=== PATIENT | male | born 1950 | race Caucasian/White ===

== ENCOUNTER 2019-05-05 07:02 | Inpatient (IN) ==
--- NOTE | 2019-04-25 13:40 | Anesthesiology Consultation ---
Date of Service April 25, 2019 Assessment & Plan (1) Encounter for pre-operative examination: PCP Clearance 04/27/19 = "patient at mild to moderate risk for left total shoulder." Chart Review Chart Review: Acceptable Risk for Surgery and Patient seen in Pre Admission Testing Teaching & Discussion Instructed NPO after midnight before surgery, except medications with 15 cc of water. Medication instructions provided according to the PAT guidelines. History Surgery Operation Date: 05/05/19 09:45 Proposed Procedures p Left Total Shoulder Arthroplasty, Distal Clavicle Excision - Aditya Lopez MD Height/Weight Height: 5 ft 11 in Weight: 101.1 kg Allergies Allergy/AdvReac Type Severity Reaction Status Date / Time No Known Drug Allergies Allergy Verified 04/18/19 14:23 Medications Home Medications Medication Instructions Recorded Confirmed Last Taken allopurinol 300 mg PO QAM 04/18/19 04/18/19 Unknown amlodipine 5 mg PO QAM 04/18/19 04/18/19 Unknown cholecalciferol (vitamin D3) 125 mcg PO WK 04/18/19 04/18/19 Unknown [Vitamin D3] doxazosin 2 mg PO HS 04/18/19 04/18/19 Unknown loratadine [Claritin] 10 mg PO DAILY PRN 04/18/19 04/18/19 Unknown losartan 100 mg PO QAM 04/18/19 04/18/19 Unknown naproxen sodium [Aleve] 440 mg PO BID PRN 04/18/19 04/18/19 Unknown turmeric 400 mg PO QAM 04/18/19 04/18/19 Unknown zolpidem 5 mg PO HS PRN 04/18/19 04/18/19 Unknown Past Medical History Medical History Deep vein thrombosis ~1994 in leg s/p surgery H/O: gout Hypertension Osteoarthritis Exercise / Class Metabolic Activity II 4-5 Yardwork/Stairs/Walk up hill (Denies CP or SOB with 1 FOS) Past Family History Family History Brother Family hx of colon cancer Other No family history of adverse response to anesthesia Past Surgical History Surgical History History of carpal tunnel release bilateral History of colonoscopy History of esophagogastroduodenoscopy (EGD) History of tonsillectomy History of total knee replacement bilateral S/P genital surgery Exploratory surgery on scrotum to remove masses S/P left inguinal hernia repair S/P right knee surgery cartilage repair Past Anesthesia History No Hx of Anesthesia Complications and No Family Hx of Anesthesia Complications History of PONV No Hx of PONV and No Hx of Motion Sickness Social History Smoking Status: Never smoker Do You Dip or Chew Tobacco: No Hx Alcohol Use: Yes Alcohol type: beer alcohol intake frequency: 3 or more drinks per day (six pack per day per ) Hx Substance Use: No substance use type: does not use Review of Systems Pt denies any recent chest pain, shortness of breath, palpitations, cough, fever or URI. Physical Exam Vital Signs BP: 125/87 P: 86bpm SPO2: 95% RA T: 97.8 F R: 16 ENMT Mouth: + dental restorations (6 caps on front uppers); no chipped teeth and no loose teeth Thyromental Distance: > or= 3.5 Finger Breadths (3.5) Mallampati Class: III Neck + short neck; neck extension not limited Respiratory normal respiratory effort Auscultation: lungs clear to auscultation bilaterally Cardiovascular Rate/Rhythm: regular rate and regular rhythm Heart Sounds: no murmur Vessels: no carotid bruit Testing Laboratory Results 04/25/19 13:52 04/25/19 13:52 PT 10.8 Seconds (9.0-12.0) 04/25/19 13:52 INR 1.1 (0.9-1.1) 04/25/19 13:52 APTT 24.5 Seconds (21.0-31.0) 04/25/19 13:52 Hemoglobin A1c 5.4 % (4.5-5.6) 04/25/19 13:52 Urine Color Dark Yellow 04/25/19 13:52 Urine Appearance Clear (Clear) 04/25/19 13:52 Urine pH 5.0 (4.5-7.5) 04/25/19 13:52 Ur Specific [place] 1.033 (1.000-1.030) H 04/25/19 13:52 Urine Protein Negative (Negative) 04/25/19 13:52 Urine Glucose (UA) Negative (Negative) 04/25/19 13:52 Urine Ketones Trace (Negative) H 04/25/19 13:52 Urine Nitrite Negative (Negative) 04/25/19 13:52 Ur Leukocyte Esterase Negative (Negative) 04/25/19 13:52 Blood Type A Positive 04/25/19 13:52 Antibody Screen NEGATIVE 04/25/19 13:52 Electrocardiogram Date: 04/25/19 Findings: + NSR @ (71bpm) Chest X-Ray Date: 04/25/19 IMPRESSION: 1. No acute process within the chest. 2. Possible 8 mm nodule within the right midlung zone. Follow-up PA and lateral views of the chest with oblique views and nipple markers recommended for further evaluation. 3. This report was called/faxed to the referring physician's office following dictation. *PCP reviewed CXR and sent pt for CT, noted below. Other Testing CT Thorax w/ Contrast 04/28/19 Report from [facility] on a PA and lateral chest from 04/25/2019 suggested a nodule in the right midlung. There is no findings sugges t an occult pulmonary nodule. No findings for acute abnormality in either lung. No pulmonary mass or nodule seen.
--- NOTE | 2019-04-25 13:48 | PAT Medication Instructions ---
Medication Instructions Date of Service April 25, 2019 Home Medications allopurinol 300 mg PO QAM amlodipine 5 mg PO QAM cholecalciferol (vitamin D3) 125 mcg PO WK doxazosin 2 mg PO HS loratadine [Claritin] 10 mg PO DAILY PRN losartan 100 mg PO QAM naproxen sodium [Aleve] 440 mg PO BID PRN turmeric 400 mg PO QAM zolpidem 5 mg PO HS PRN ASK your surgeon for instructions naproxen sodium [Aleve] 440 mg PO BID PRN STOP taking 2 weeks before surgery turmeric 400 mg PO QAM DO NOT take the morning of surgery cholecalciferol (vitamin D3) 125 mcg PO WK loratadine [Claritin] 10 mg PO DAILY PRN losartan 100 mg PO QAM Take morning of surgery With a small sip of water, OTHERWISE NOTHING TO EAT OR DRINK AFTER MIDNIGHT: allopurinol 300 mg PO QAM amlodipine 5 mg PO QAM Take evening before surgery doxazosin 2 mg PO HS loratadine [Claritin] 10 mg PO DAILY PRN (if needed) zolpidem 5 mg PO HS PRN (if needed) Other Notes If you have any questions please call us at [phone] or [phone] or [phone] or [phone]
--- NOTE | 2019-04-25 14:37 | XRay Report ---
XR chest Pre-admission PA/Lat HISTORY: Preop. COMPARISON: None. FINDINGS: Possible 8 mm nodule within the right midlung zone. Otherwise, lungs are clear. No pleural effusions. No pneumothorax. The heart is normal in size. IMPRESSION: 1. No acute process within the chest. 2. Possible 8 mm nodule within the right midlung zone. Follow-up PA and lateral views of the chest wi th oblique views and nipple markers recommended for further evaluation. 3. This report was called/faxed to the referring physician's office following dictation. Electronically signed by: Vijay Fox M.D. 04/25/2019 2:35 PM
[2019-04-25 15:16] LABS: Basophils # (auto) 0.01 K/uL (0-0.2); Basophils % (auto) 0.2 %; Eosinophils # (auto) 0.31 K/uL (0-0.5); Eosinophils % (auto) 4.7 %; Hemoglobin 16.3 g/dL (14.0-18.0); Immature Granulocytes # (auto) 0.01 K/uL (0.00-0.02); Immature Granulocytes % (auto) 0.2 %; Lymphocytes # (auto) 1.73 K/uL (1.2-3.4); Lymphocytes % (auto) 26.3 %; Mean Corpuscular Hemoglobin 32.3 pg (25-34); Mean Corpuscular Hgb Conc 34.7 g/dL (32-36); Mean Corpuscular Volume 93.1 fL (80-100); Monocytes % (auto) 10.7 %; Neutrophils # (auto) 3.81 K/uL (1.4-6.5); Neutrophils % (auto) 57.9 %; Platelet Count 197 K/uL (130-400); RDW Coefficient of Variation 13.4 % (11.5-14.5); RDW Standard Deviation 45.5 fL (36.4-46.3); Red Blood Count 5.05 M/uL (4.7-6.1); White Blood Count 6.57 K/uL (4.8-10.8)
[2019-04-25 15:24] LABS: Appearance Urine Clear (Clear); Blood Urine Negative (Negative); Color Urine Dark Yellow; Glucose Urine UA Negative (Negative); Ketones Urine Trace (Negative); Leukocyte Esterase Urine Negative (Negative); Nitrite Urine Negative (Negative); Protein Urine Negative (Negative); Specific Gravity Urine 1.033 (1.000-1.030); Urobilinogen Urine Negative (Negative)
[2019-04-25 15:30] LABS: INR 1.1 (0.9-1.1); Partial Thromboplastin Ratio 0.9; Partial Thromboplastin Time 24.5 Seconds (21.0-31.0); Prothrombin Time 10.8 Seconds (9.0-12.0)
[2019-04-25 15:31] LABS: Albumin Level 3.4 gm/dl (3.4-5.0); BUN Creatinine Ratio 15.7 (10-20); Bilirubin Urine Negative (Negative); Calcium 8.6 mg/dl (8.5-10.1); Creatinine Clr Calc Pharmacy 75.8 ml/min; Est GFR (Non-African American) 66.4; Ictotest Urine Negative (Negative); Potassium 3.9 mmol/L (3.5-5.1)
[2019-04-26 05:33] LABS: Estimated Average Glucose 108 mg/dl; Hemoglobin A1C 5.4 % (4.5-5.6)
--- NOTE | 2019-05-04 16:36 | History and Physical Report ---
DATE OF ADMISSION: 05/05/2019 CHIEF COMPLAINT: Chronic left shoulder pain. HISTORY OF PRESENT ILLNESS: This is a 68-year-old male patient of Dr. Lopez'kip complaining of chronic left shoulder pain, longstanding, now progressively getting worse. The patient failed conservative treatment and has been diagnosed with end-stage osteoarthritis per clinical and radiographic exams. The patient wished to proceed with a left total shoulder arthroplasty and open distal clavicle excision. PAST MEDICAL HISTORY: Hypertension, hypercholesterolemia, snoring with no diagnosis of sleep apnea, osteoarthritis, neck problems, acid reflux, hiatal hernia, dental issues. SOCIAL HISTORY: Nonsmoker, 6 beers per day drinker. FAMILY HISTORY: Noncontributory. REVIEW OF SYSTEMS: Chronic left shoulder pain. Otherwise, denies any shortness of breath, chest pain, nausea, vomiting or other joint complaints. PAST SURGICAL HISTORY: Bilateral total knee replacements, tonsillectomy, hernia, scrotal cysts and right knee scope. MEDICATIONS: 1. Amlodipine 5 mg daily. 2. Losartan 10 mg daily. 3. Ambien 10 mg 1/2 tablet as needed at night. 4. Allopurinol 300 mg 1/2 tablet as needed. 5. Doxazosin 2 mg twice daily. 6. Claritin 1 at night. 7. Turmeric daily. 8. Aleve 2 tablets as needed. ALLERGIES: No known drug allergies. PHYSICAL EXAMINATION: GENERAL: Well-developed, well-nourished 68-year-old male in no acute distress. He is alert and oriented x3 and pleasant. HEENT: Normocephalic, atraumatic. Extraocular motions are intact. Pupils are equal and reactive to light. HEART: Regular rate and rhythm, no murmurs. LUNGS: Clear. ABDOMEN: Soft, nontender, bowel sounds present. EXTREMITIES: Left shoulder reveals crepitation and pain with range of motion. His range of motion is decreased. His strength is 4/5 with pain. NEUROLOGIC: Neurovascularly, he is intact in his left upper extremity. DIAGNOSIS: Left shoulder end-stage osteoarthritis and acromioclavicular joint arthritis, hypertension, hypercholesterolemia, neck problems, acid reflux, hiatal hernia. PLAN: The patient was advised of his diagnosis. Indications, risks, benefits, postop course have all been reviewed. The patient wished to proceed with a left total shoulder arthroplasty and open distal clavicle excision. Necessary consent forms, preoperative testing and clearances will be obtained.
[~2019-05-05 07:02] MED LIST: ACETAMINOPHEN 500 MG TAB PO SCH; CEFAZOLIN 2000MG 2,000 MG/15 ML SYR IV SCH; CeleBREX 200 MG CAP PO SCH; DEXAMETHASONE SOD INJ 4 MG/ML VIAL ONE; FAMOTIDINE 20 MG TAB PO SCH; GABAPENTIN 300 MG CAP PO SCH; LR 15ML/HR IV SCH; METOCLOPRAMIDE HCL 10 MG TABLET PO SCH; ROPIVACAINE 0.5% 5 MG/ML 30 ML VIAL ONE; dexAMETHasone 4 MG TAB PO SCH
[2019-05-05] MEDS ORDERED: ePHEDrine sulfate 50 MG/ML AMP IV PRN (08:35)
[2019-05-05] MEDS ORDERED: HYDROmorphone INJ 2 MG/ML SYR/VIAL IV PRN (08:35)
[2019-05-05] MEDS ORDERED: ONDANSETRON INJ 2 MG/ML 2 ML VIAL IV PRN ×2 (08:35→15:33)
[2019-05-05] MEDS ORDERED: ATROPINE SULFATE 0.1 MG/ML 10ML SYR IV PRN (08:35)
[2019-05-05] MEDS ORDERED: PROMETHAZINE HCL 12.5 MG in SODIUM CHLORIDE 0.9% 50 ML IV PRN (08:35)
[2019-05-05] MEDS ORDERED: METOCLOPRAMIDE HCL INJ 5 MG/ML 2 ML VIAL IV PRN (08:35)
[2019-05-05] MEDS ORDERED: PROPOFOL IV EMULSION 10 MG/ML 20 ML VIAL IV ONE (09:24)
[2019-05-05] MEDS ORDERED: DEXAMETHASONE SOD INJ 4 MG/ML VIAL ONE (09:24)
[2019-05-05] MEDS ORDERED: fentaNYL citrate 100 MCG/2 ML VIAL ONE ×3 (09:24→13:45)
[2019-05-05] MEDS ORDERED: GLYCOPYRROLATE 0.2 MG/ML VIAL ONE (09:24)
[2019-05-05] MEDS ORDERED: MIDAZOLAM HCL 1 MG/ML 2ML VIAL ONE ×2 (09:24)
[2019-05-05] MEDS ORDERED: LIDOCAINE HCL 2% 2 ML VIAL/AMP(20MG/ML) INFIL ONE (09:24)
[2019-05-05] MEDS ORDERED: ONDANSETRON INJ 2 MG/ML 2 ML VIAL ONE (09:24)
[2019-05-05] MEDS ORDERED: NEOSTIGMINE METHYLSULFATE 5 MG/5 ML SYR ONE (09:24)
--- NOTE | 2019-05-05 09:54 | History & Physical Bridge Note ---
Date of Service May 05, 2019 History & Physical Bridge Note I have examined the patient, reviewed the History & Physical and in the interval since the performance of the History & Physical I have noted the following changes of clinical significance: no changes noted
[2019-05-05] MEDS ORDERED: EPINEPHrine HCL INJ 1 MG/ML 30ML ONE (10:36)
[2019-05-05] MEDS ORDERED: BACITRACIN INJ 50,000 UNIT VIAL ONE (10:36)
--- NOTE | 2019-05-05 13:39 | Post Operative Brief Note ---
Immediate Post Op Note v1 Date of Surgery May 05, 2019 Pre & Post Diagnosis Operation Date: 05/05/19 10:05 Pre-Op Diagnosis: Left shoulder end-stage glenohumeral osteoarthritis and acromioclavicular joint arthritis Post-Op Diagnosis: Left shoulder end-stage glenohumeral osteoarthritis and acromioclavicular joint arthritis and biceps tendinopathy biceps tenosynovitis I identified the patient and participated in the time-out.: Yes Procedure Operation Date: 05/05/19 10:05 Actual Procedures p Left Total Shoulder Arthroplasty, Distal Clavicle Excision, biceps tenodesis (Right) - Aditya Lopez MD Surgeon Aditya Lopez MD Mechanical Fitter HE Moe Estimated Blood Loss 80 Findings Consistent with Post-Op Diagnosis Specimens Humeral head and distal clavicle Drains Hemovac Drain Anesthesia Type General Regional Complications none Disposition Accompanied Patient To Recovery: No Disposition: Recovery Room Overlapping Procedure I was immediately available: during the entire case.
[2019-05-05] MEDS: fentaNYL citrate 100 MCG/2 ML VIAL IV PRN ×2 (13:47→13:58)
--- NOTE | 2019-05-05 14:13 | XRay Report ---
LEFT SHOULDER 2 VIEWS CLINICAL HISTORY: Postoperative examination. FINDINGS: 2 portable views of the left shoulder are obtained. No prior studies are available for donna balderrama at the time of dictation. The skeletal structures are osteopenic. A left shoulder arthroplasty is in near anatomic alignment. No acute fracture is seen. Mild productive change is noted at the acr omioclavicular joint. Expected postoperative changes overly the left shoulder including skin clips, a surgical drain, subcutaneous gas, and soft tissue swelling. The visualized left lung parenchyma is c lear. IMPRESSION: Expected postoperative findings status post left shoulder arthroplasty. No acute fracture is identified. Electronically signed by: Peng Hoffman M.D. 05/05/2019 2:12 PM
[2019-05-05] MEDS ORDERED: HYDROmorphone INJ 0.5 MG/0.5 ML SYR IV PRN (15:33)
[2019-05-05] MEDS ORDERED: MAGNESIUM HYDROXIDE SUSP 30 ML UDC PO PRN (15:33)
[2019-05-05] MEDS ORDERED: LORATADINE 10 MG TAB PO PRN (15:33)
[2019-05-05] MEDS ORDERED: bisacodyL 10 MG SUPP PR PRN (15:33)
[2019-05-05] MEDS ORDERED: NALOXONE HCL 0.4 MG/1 ML VIAL/CARP IV PRN (15:33)
[2019-05-05] MEDS ORDERED: AMLODIPINE BESYLATE 5 MG TAB PO ONE (16:13)
--- NOTE | 2019-05-05 16:33 | Anesthesiology Progress Note ---
Date of Service May 05, 2019 Anesthesia Post Procedure Vital Signs Vital Signs: Temp Pulse Pulse Pulse Resp BP Pulse Ox 05/05/19 15:34 36.7 C 102 H 17 136/62 94 05/05/19 15:30 36.6 C 105 H 17 139/89 95 05/05/19 14:45 100 H 17 148/95 H 94 05/05/19 14:30 100 H 15 150/91 H 93 05/05/19 14:20 36.9 C 100 H 15 142/85 H 94 05/05/19 14:10 102 H 19 148/87 H 93 05/05/19 14:00 102 H 20 143/87 H 94 05/05/19 13:50 107 H 16 143/87 H 93 05/05/19 13:41 36.9 C 113 H 11 L 144/90 H 92 05/05/19 08:21 36.6 C 72 18 139/90 96 Pain Intensity Left Shoulder: Pain Intensity: 2 Transfer of Care Handoff Completed per policy Notes Mental Status: alert / awake / arousable and participated in evaluation Patient Amnestic to Procedure: Yes Nausea / Vomiting: adequately controlled Pain: adequately controlled Airway Patency, RR, SpO2: stable & adequate BP & HR: stable & adequate Hydration State: stable & adequate Anesthetic Complications: no major complications apparent
[2019-05-05] MEDS: ACETAMINOPHEN 500 MG TAB PO SCH ×2 (16:42→22:52)
[2019-05-05] MEDS: SODIUM CHLORIDE 0.9% 1000ML 1,000 ML IV SCH (16:43)
--- NOTE | 2019-05-05 16:49 | Operative Report ---
Post Operative Report Pre & Post Diagnosis Operation Date: 05/05/19 10:05 Pre-Op Diagnosis: Left shoulder glenohumeral and acromioclavicular joint osteoarthritis Post-Op Diagnosis: Left shoulder glenohumeral and acromioclavicular joint osteoarthritis and biceps tenosynovitis and tendinopathy with bicipital groove bone spurs I identified the patient and participated in the time-out.: Yes Procedure Operation Date: 05/05/19 10:05 Actual Procedures p Left Total Shoulder Arthroplasty, Distal Clavicle Excision, Biceps Tenodesis(Right) - Aditya Lopez MD Surgeon Aditya Lopez MD International Flight Attendant HE Moe Estimated Blood Loss 80 Findings Consistent with Post-Op Diagnosis Specimens Humeral head, distal clavicle Drains 2 Hemovac Anesthesia Type General Regional Complications none Disposition Accompanied Patient To Recovery: No Disposition: Recovery Room Indications 68-year-old male with chronic bilateral severe osteoarthritis of the glenohumeral joint. He has had multiple injections conservative management. Radiographs demonstrate gradual joint destruction bone loss with relatively concentric wear on the glenoid. Patient also has hypertrophic AC joint arthritis which is symptomatic. Description of Procedure The patient was taken to the operating room and anesthetized under a general and regional block anesthesia. A towel roll was placed under the medial border of the scapula of the left shoulder. The patient's head was placed on a foam headrest and protective eyewear was placed and the extremities were well padded. The arm was draped free in order to manipulate the shoulder as necessary. The shoulder exam demonstrated only 35 degrees external rotation 80 degrees abduction and forward elevation to 140 degrees. There is [id number] crepitation.. The shoulder was sterilely prepped and draped in the usual sterile fashion. An anterior deltopectoral approach was performed. A longitudinal incision was made in the interval. The skin was incised sharply and subcutaneous tissues dissected down to the fascia. The cephalic vein was not well developed there were some large collaterals that were more medial and retracted medially with the pectoralis muscle. The clavipectoral fascia was divided at the lateral margin of the conjoined tendon and divided up to the level of the coracoacromial ligament which was preserved. The upper 1 cm of the pectoralis was released for inferior exposure. Patient had a large thick falciform ligament over the biceps. The biceps tendon findings demonstrated marked tenosynovitis with a hypertrophic tenosynovium collection over the biceps tendon. The biceps in the bicipital groove was noted to have large spurs surrounding it and tendinopathy. The rotator cuff tendon findings demonstrated intact rotator cuff. The circumflex vessels were identified and tied off with silk ties and divided laterally. The fibers and subscapularis were split longitudinally at the level of the circumflex vessels down to the capsule and then reflected off the inferior capsule using a Kitner elevator. The axillary nerve was identified with a tug test and protected with a blunt Clint retractor. The rotator interval was opened up and extended down to the glenoid. The biceps tendon was identified and tenodesed to the pectoralis tendon with fig [id number] #2 FiberWire sutures in the proximal biceps was resected. The bone spurs in the bicipital groove were all resected with a rongeur. The subscapularis tendon was taken down with a trans-tendinous incision leaving a cuff of tissue for repair on the lesser tuberosity. The incision was carried down to the tendon and the capsule and a #1 Vicryl suture was placed into the free end of the subscapularis tendon. The capsule was subperiosteally dissected off the inferior neck of the humerus exposing the humeral osteophytes which demonstrated moderately large inferior osteophytes extending from anterior to posterior.. The osteophytes were excised with an artist chisel and a rongeur. The capsular release along the inferior neck of the humerus was completed. The humerus was then retracted posterior to the glenoid with a Fukuda retractor. The remainder of the biceps tendon and labrum was resected. The glenoid findings demonstrated completely eburnated bone with some moderate bone loss. There was some relative anterior ridge of the glenoid that was still intact making that somewhat proud with more concentric type wear with some bone loss medial.. I did an anterior inferior and posterior inferior release with electrocautery on bone and a [place] elevator with the axillary nerve continuing to be protected with the blunt Hohmann retractor inferiorly. When the releases were completed and the humeral head was exposed with some extension and external rotation and in anatomic head cut was made using the oscillating saw. The humeral head findings demonstrated eburnated bone some flattening of the humeral head. The simplicity Tornier total shoulder arthroplasty system was used. The head was sized for a 50 mm implant. The central guidepin was placed using the appropriate guide. The cut surface was reamed. The central drill hole for the trial nucleus was reamed. The trial nucleus punch was seated leaving it a few millimeters proud and then the cut protector was placed. The humeral head was then retracted posterior to the glenoid with Hohmann retractors and Bankart retractor placed anteriorly. A central drill hole was made into the glenoid. The glenoid was sized for a size medium 30 radius Cortiloc pegged component. The StyleChat by [employer] Acsendo total shoulder arthroplasty system was used and the Cortiloc medium 30 radius pegged glenoid component was chosen. The glenoid was reamed and the central drill widened and the guide for the peg holes was placed in the peg holes were drilled and a trial component was placed with a tight fit. The trial was removed and the glenoid was irrigated with pulsatile lavage antibiotic solution and the drill holes were dried and packed with epinephrine- soaked tampons for hemostasis. The [place] G cement was vacuum mixed. The final component was cemented into position. All excess cement was cleared. Pressure was maintained on the implant until the cement cured. After irrigation the glenoid retractors were removed and the cut humeral surface was reexposed the cut protector was removed and a trial 50 x 16 humeral head component was placed. A trial reduction was performed and the shoulder was stable. The trial was removed and the humerus surface was irrigated copiously with antibiotic solution with bacitracin. 3 drill holes were made into the hard bone in the bicipital groove lateral to the lesser tuberosity and 3 #5 FiberWire transosseous sutures were placed for repair of the subscapularis. After further irrigation I placed some bone graft that was taken from the humeral head into the base of the drill hole to enhance some fixation of the press-fit nucleus. The sized to simplicity nucleus was then impacted leaving it a few millimeters proud. The the size 50 x 16 mm humeral head was then impacted onto the nucleus and both implants simultaneously impacted into the humerus with a tight press- fit. The humerus was reduced to the glenoid and stability verified. The subscapularis was repaired with the #5 FiberWire sutures in a Terry-Jony suture technique and lateral row fixation with [id number] #2 FiberWire in the soft tissue. The rotator interval was closed and maximal external rotation. The pectoralis was then closed with [id number] #2 FiberWire suture. The shoulder was taken through range of motion there was no tension on repair through 150 degrees forward elevation 90 degrees abduction and 45 degrees external rotation. Attention was then taken to the distal clavicle excision. A transverse incision was made over the distal clavicle. The skin incised sharply subcutaneous tissues were dissected off of the fascia overlying the distal clavicle. Incision was carried down to the distal clavicle and to the edge of the acromion across the AC joint. Subperiosteal dissection exposed 1 cm distal clavicle. The AC joint demonstrates significant hypertrophic arthritis. 1 cm distal clavicle was resected with the oscillating saw. The wound was irrigated. The deltotrapezial fascia was closed with [id number] #2 FiberWire suture. Secure repair was obtained. The subcu tissues were closed into 2-0 Vicryl suture and skin was closed with juliet. 2 Hemovac drains were placed in the deltopectoral incision one deep to the deltoid and one deep to the conjoined tendon.. The deltopectoral interval was closed with [id number] #1 Vicryl sutures. The subcutaneous tissues were closed with interrupted 2-0 Vicryl and the skin was closed with juliet and a sterile dressing was applied. The patient tolerated the procedure well. HE Moe my physician title i instructional assistant, assisted in soft tissue retraction instrument management suture management and assisted in the subcutaneous and skin closure and will participate in the postoperative care the patient. I attest to the content of the Intraoperative Record and any orders documented therein. Any exceptions are noted below.
--- NOTE | 2019-05-05 17:17 | Hospitalist Consultation ---
Date of Consultation May 05, 2019 Assessment & Plan (1) Hypertension: Blood pressure is stable. Continue monitoring every 4 hours. Continue amlodipine 5 mg p.o. every morning, continue losartan 100 mg p.o. every morning. Continue doxazosin 2 mg p.o. nightly. Heart healthy low-sodium diet. Patient advised to try to reduce weight and exercise status post arthroplasty of the left shoulder. Present on Admission?: Yes (2) Gout: Stable. Continue allopurinol 300 mg p.o. every morning. Present on Admission?: Yes (3) Osteoarthritis: Continue turmeric 400 mg p.o. every morning. Present on Admission?: Yes (4) Obesity: Patient advised to try to reduce weight for at least 10 to 15 pounds. To join [employer]. And start exercises status post arthroplasty. Physical and occupational therapy would be of great help as well. Present on Admission?: Yes (5) Status post reverse total arthroplasty of left shoulder: As per Ortho. For DVT prophylaxis SCDs and teds and otherwise per orthopedics. Present on Admission?: Yes (6) Insomnia: Continue zolpidem 5 mg p.o. nightly as needed for insomnia. Patient was advised to try as an outpatient melatonin 5 or 6 mg QHS as needed for insomnia can be purchased as OTC in any drugstore. Melatonin benefits discussed with patient. Patient should avoid long-acting sedatives/hypnotics. Present on Admission?: Yes History of Present Illness Reason for Consultation: Medical management Requesting Physician: Aditya Lopez MD Attending Physician: Aditya Lopez MD History of Present Illness Patient is a 68 years old male with past medical history of gout, hypertension, benign prostatic hypertrophy, and insomnia who is s/p today left total shoulder arthroplasty, distal cervical excision, biceps tendodesis. Tolerated procedure well and reports not being in any pain. Patient denies fever, chills, chest pain, shortness of breath, abdominal pain, frequency, urgency. Patient does not use oxygen at home. P.o. intake is good. Patient reports having regular bowel movements and no urinary retention. Please chart is reviewed. Allergies Allergy/AdvReac Type Severity Reaction Status Date / Time No Known Drug Allergies Allergy Verified 05/05/19 07:41 Home Medications Home Medications Medication Instructions Recorded Confirmed Type allopurinol 300 mg PO QAM 04/18/19 05/05/19 History amlodipine 5 mg PO QAM 04/18/19 05/05/19 History cholecalciferol (vitamin D3) 125 mcg PO WK 04/18/19 05/05/19 History [Vitamin D3] doxazosin 2 mg PO HS 04/18/19 05/05/19 History loratadine [Claritin] 10 mg PO DAILY PRN 04/18/19 05/05/19 History losartan 100 mg PO QAM 04/18/19 05/05/19 History naproxen sodium [Aleve] 440 mg PO BID PRN 04/18/19 05/05/19 History turmeric 400 mg PO QAM 04/18/19 05/05/19 History zolpidem 5 mg PO HS PRN 04/18/19 05/05/19 History Patient History Medical History Deep vein thrombosis ~1994 in leg s/p surgery H/O: gout Hypertension Osteoarthritis Surgical History History of carpal tunnel release bilateral History of colonoscopy History of esophagogastroduodenoscopy (EGD) History of tonsillectomy History of total knee replacement bilateral S/P genital surgery Exploratory surgery on scrotum to remove masses S/P left inguinal hernia repair S/P right knee surgery cartilage repair Family History Brother Family hx of colon cancer Other No family history of adverse response to anesthesia Social History Preferred Language: Georgian Communication Ability: Effective Mental Health Director Required: No Beliefs That Will Affect Care: None Current Living Situation: Spouse Other Information That Helps Us Care for You: No Feels Safe at Home: Yes Safety Concerns: Feels Safe At This Time Smoking Status: Never smoker Do You Dip or Chew Tobacco: No ; Second Hand Exposure: No ; Tobacco Cessation Education Requested by Patient: No Hx Alcohol Use: Yes Alcohol type: beer Hx Substance Use: No Review of Systems Review of Systems: All systems reviewed & are unremarkable except as noted in HPI & below Physical Exam Constitutional: WD/WN, vitals as above well developed and + obese ENMT: Mouth: + dental restorations (6 caps on front uppers); no chipped teeth and no loose teeth Mallampati Class: III Neck: + short neck; neck extension not limited Respiratory: normal respiratory effort Auscultation: lungs clear to auscultation bilaterally Cardiovascular: Rate/Rhythm: regular rate and regular rhythm Heart Sounds: no murmur Vessels: no carotid bruit Gastrointestinal (Abdomen): normal bowel sounds, soft, nontender, no hepatosplenomegaly Musculoskeletal: no cyanosis or clubbing, extremities motor strength 5/5 Left shoulder is in sling s/p arthroplasty Skin: no rashes, warm and dry Neurologic: patellar DTR's 2+ bilat, sensation intact Psychiatric: A+Ox3, euthymic affect Results & Data Vital Signs (Past 12 Hours) Vital Signs Temp Pulse Pulse Pulse Resp BP Pulse Ox 05/05/19 16:48 36.7 C 109 H 17 142/85 H 95 05/05/19 15:34 36.7 C 102 H 17 136/62 94 05/05/19 15:30 36.6 C 105 H 17 139/89 95 05/05/19 14:45 100 H 17 148/95 H 94 05/05/19 14:30 100 H 15 150/91 H 93 05/05/19 14:20 36.9 C 100 H 15 142/85 H 94 05/05/19 14:10 102 H 19 148/87 H 93 05/05/19 14:00 102 H 20 143/87 H 94 05/05/19 13:50 107 H 16 143/87 H 93 05/05/19 13:41 36.9 C 113 H 11 L 144/90 H 92 05/05/19 08:21 36.6 C 72 18 139/90 96 PG Care Time/CCT Total # of Minutes Spent Total Time Spent with Patient: Total time spent is greater than 50% in coordination of care (as documented) at patient's floor/unit and/or counseling patient:
[2019-05-05] MEDS: CEFAZOLIN 2000MG 2,000 MG/15 ML SYR IV SCH (17:30)
[2019-05-05] MEDS ORDERED: INFLUENZA Vaccine HIGH DOSE 65+yrs 0.5 mL Syr IM ONE (20:00)
[2019-05-05] MEDS: SENNA 8.6 MG TAB PO SCH (20:02)
[2019-05-05] MEDS: ASPIRIN 81 MG ECTAB PO SCH (20:02)
[2019-05-05] MEDS: DOCUSATE SODIUM 100 MG CAP PO SCH (20:03)
[2019-05-05] MEDS: DOXAZosin MESYLATE TAB 2 MG TAB PO SCH (20:03)
[2019-05-05] MEDS: ZOLPIDEM TARTRATE 5 MG TAB PO PRN (21:39)
[2019-05-06] MEDS: CEFAZOLIN 2000MG 2,000 MG/15 ML SYR IV SCH (02:03)
[2019-05-06] MEDS: SODIUM CHLORIDE 0.9% 1000ML 1,000 ML IV SCH (02:11)
[2019-05-06 06:52] LABS: Hemoglobin 14.4 g/dL (14.0-18.0); Immature Granulocytes # (auto) 0.04 K/uL (0.00-0.02); Immature Granulocytes % (auto) 0.2 %; Lymphocytes # (auto) 1.05 K/uL (1.2-3.4); Lymphocytes % (auto) 6.4 %; Mean Corpuscular Hemoglobin 31.6 pg (25-34); Mean Corpuscular Hgb Conc 34.3 g/dL (32-36); Mean Corpuscular Volume 92.3 fL (80-100); Mean Platelet Volume 10.4 fL (7.4-10.4); Monocytes # (auto) 1.03 K/uL (0.11-0.59); Monocytes % (auto) 6.3 %; Neutrophils # (auto) 14.26 K/uL (1.4-6.5); Neutrophils % (auto) 87.1 %; Platelet Count 162 K/uL (130-400); RDW Coefficient of Variation 13.3 % (11.5-14.5); Red Blood Count 4.55 M/uL (4.7-6.1); White Blood Count 16.38 K/uL (4.8-10.8)
[2019-05-06 07:00] LABS: Estimated Average Glucose 111 mg/dl; Hemoglobin A1C 5.5 % (4.5-5.6)
[2019-05-06 07:32] LABS: BUN Creatinine Ratio 17.9 (10-20); Calcium 8.3 mg/dl (8.5-10.1); Creatinine Clr Calc Pharmacy 78.6 ml/min; Est GFR (African American) 80.4; Est GFR (Non-African American) 69.4; Potassium 4.4 mmol/L (3.5-5.1)
[2019-05-06] MEDS: OXYCODONE HCL IR 5 MG TAB (IMMEDIATE RELEASE) PO PRN ×3 (08:27→18:48)
[2019-05-06] MEDS: ACETAMINOPHEN 500 MG TAB PO SCH ×3 (08:51→22:38)
[2019-05-06] MEDS: ASPIRIN 81 MG ECTAB PO SCH ×2 (08:53→20:14)
[2019-05-06] MEDS: LOSARTAN POTASSIUM 50 MG TAB PO SCH (08:54)
[2019-05-06] MEDS: DOCUSATE SODIUM 100 MG CAP PO SCH ×2 (08:54→20:13)
[2019-05-06] MEDS: MULTIVITAMIN TAB PO SCH (08:54)
[2019-05-06] MEDS: AMLODIPINE BESYLATE 5 MG TAB PO SCH (08:54)
[2019-05-06] MEDS: allopurinoL 300 MG TAB PO SCH (08:55)
[2019-05-06] MEDS ORDERED: NON-FORMULARY MEDICATION (Turmeric 400 MG) PO SCH (09:00)
--- NOTE | 2019-05-06 14:09 | Hospitalist Progress Note ---
Date of Service May 06, 2019 Assessment & Plan (1) Status post reverse total arthroplasty of left shoulder: * POD #1 s/p LEFT shoulder arthroplasty with Dr. Lopez. EBL 80mL. Pre-op h/h 16.3/14.4. Output 190cc -- management per primary * H/h 14.4/42 today -- secondary to blood loss/IVF. WBC 16.38 today, however patient did receive 8mg dexamethasone -- afebrile, no s/sx infection * PT/OT/DVT Prophylaxis/pain management/per primary team * Monitor CBC (2) Hypertension: * STABLE - currently 128/60 * Continue amlodipine 5mg, losartan 100mg * Continue doxazosin 2 mg QHS (3) Gout: * Stable. Continue allopurinol 300 mg (4) Osteoarthritis: * Continue turmeric 400 mg (5) Obesity: * Diet/exercise (6) Insomnia: * Continue zolpidem 5 mg QHS. nightly as needed for insomnia. Discussed alternatives like melatonin to avoid prison dependence/sedatives (7) DVT prophylaxis: * H/o DVT 1995 following surgery * ASA 81mg BID per primary Dispo: from home, likely d/c tomorrow per primary team Thank you for allowing medicine team to participate in the care of Mr. Baker. Medicine will sign off. Please contact with any questions/concerns. Supervising Physician Co-Signing Physician Notes HE Supervision Note: I did not personally see or examine the patient today, but I verified all beckwith points of HE Bess's assessment and plan with the following exceptions/additions: It should be noted that the outpatient records show the patient's doxazosin dose is 2 mg p.o. twice daily-this should be clarified with the patient prior to discharge, however his blood pressures are fairly well controlled for the time being and can remain at the once daily dosing at bedtime for now. Hospitalist service will sign off at this time. Please feel free to call or reconsult us if acute or new issues arise. Subjective Patient evaluated this morning. States he does have some pain of the left shoulder, but it's worse during our interaction since he had just been working with physical therapy. States pain a 3/10, controlled with oral pain medications. Had some numbness/tingling of thumb yesterday, which is resolved today. +Flatus. No BM, but patient denies any abdominal pain at this time. Last BM on and he typically goes daily. Denies current difficulty with urination. Denies fevers, chills, headache, chest pain, shortness of breath, n/v. Plans for discharge home tomorrow Review of Systems Review of Systems: All systems reviewed & are unremarkable except as noted in HPI & below Physical Exam Constitutional: WD/WN, vitals as above ENMT: multiple caps to teeth mm moist Neck: trachea midline, no thyromegaly Respiratory: normal respiratory effort, lungs clear to auscultation Cardiovascular: RRR, no murmur, no edema Gastrointestinal (Abdomen): Inspection/Auscultation: + abdomen distended and normal bowel sounds Percussion/Palpation: abdomen nontender and no hepatosplenomegaly Musculoskeletal: HemoVac left shoulder -- 200cc bloody drainage NVI Chemical Operator strength b/l UE Skin: no rashes, warm and dry Sling to LEFT UE Hemovac to L shoulder Neurologic: patellar DTR's 2+ bilat, sensation intact Psychiatric: A+Ox3, euthymic affect Lymphatic: no cervical or axillary lymphadenopathy Results & Data Vital Signs (Past 12 Hours) Vital Signs Temp Pulse Resp BP Pulse Ox 05/06/19 11:23 36.4 C L 86 16 128/60 94 05/06/19 07:10 36.8 C 80 16 145/85 H 93 05/06/19 02:15 36.8 C 85 16 148/84 H 94 Laboratory Results 05/06/19 05/06/19 05/06/19 Range/Units 06:43 06:43 06:43 WBC 16.38 H (4.8-10.8) K/uL RBC 4.55 L (4.7-6.1) M/uL Hgb 14.4 (14.0-18.0) g/dL Hct 42.0 (42-52) % MCV 92.3 (80-100) fL MCH 31.6 (25-34) pg MCHC 34.3 (32-36) g/dL RDW Std Deviation 45.0 (36.4-46.3) fL RDW Coeff of Priscilla 13.3 (11.5-14.5) % Plt Count 162 (130-400) K/uL MPV 10.4 (7.4-10.4) fL Immature Gran % (Auto) 0.2 % Neut % (Auto) 87.1 % Lymph % (Auto) 6.4 % Cowley % (Auto) 6.3 % Eos % (Auto) 0.0 % Baso % (Auto) 0.0 % Immature Gran # (Auto) 0.04 H (0.00-0.02) K/uL Neut # (Auto) 14.26 H (1.4-6.5) K/uL Lymph # (Auto) 1.05 L (1.2-3.4) K/uL Cowley # (Auto) 1.03 H (0.11-0.59) K/uL Eos # (Auto) 0.00 (0-0.5) K/uL Baso # (Auto) 0.00 (0-0.2) K/uL Sodium 136 (136-145) mmol/L Potassium 4.4 (3.5-5.1) mmol/L Chloride 107 (98-107) mmol/L Carbon Dioxide 24 (21-32) mmol/L Anion Gap 5.0 (3-11) BUN 20 H (7-18) mg/dl Creatinine 1.09 (0.6-1.4) mg/dl Est Cr Clr Drug Dosing 78.6 ml/min Est GFR ( Amer) 80.4 Est GFR (Non-Af Amer) 69.4 BUN/Creatinine Ratio 17.9 (10-20) Glucose 134 H (70-99) mg/dl Estimat Average Glucose 111 mg/dl Hemoglobin A1c 5.5 (4.5-5.6) % Calcium 8.3 L (8.5-10.1) mg/dl Triglycerides 71 (0-150) mg/dl Cholesterol 146 (0-200) mg/dl LDL Cholesterol, Calc 66 mg/dl VLDL Cholesterol, Calc 14 mg/dl HDL Cholesterol 66 mg/dl Cholesterol/HDL Ratio 2 Hepatitis C Ab Screen (Neg) 05/06/19 Range/Units 06:43 WBC (4.8-10.8) K/uL RBC (4.7-6.1) M/uL Hgb (14.0-18.0) g/dL Hct (42-52) % MCV (80-100) fL MCH (25-34) pg MCHC (32-36) g/dL RDW Std Deviation (36.4-46.3) fL RDW Coeff of Priscilla (11.5-14.5) % Plt Count (130-400) K/uL MPV (7.4-10.4) fL Immature Gran % (Auto) % Neut % (Auto) % Lymph % (Auto) % Cowley % (Auto) % Eos % (Auto) % Baso % (Auto) % Immature Gran # (Auto) (0.00-0.02) K/uL Neut # (Auto) (1.4-6.5) K/uL Lymph # (Auto) (1.2-3.4) K/uL Cowley # (Auto) (0.11-0.59) K/uL Eos # (Auto) (0-0.5) K/uL Baso # (Auto) (0-0.2) K/uL Sodium (136-145) mmol/L Potassium (3.5-5.1) mmol/L Chloride (98-107) mmol/L Carbon Dioxide (21-32) mmol/L Anion Gap (3-11) BUN (7-18) mg/dl Creatinine (0.6-1.4) mg/dl Est Cr Clr Drug Dosing ml/min Est GFR ( Amer) Est GFR (Non-Af Amer) BUN/Creatinine Ratio (10-20) Glucose (70-99) mg/dl Estimat Average Glucose mg/dl Hemoglobin A1c (4.5-5.6) % Calcium (8.5-10.1) mg/dl Triglycerides (0-150) mg/dl Cholesterol (0-200) mg/dl LDL Cholesterol, Calc mg/dl VLDL Cholesterol, Calc mg/dl HDL Cholesterol mg/dl Cholesterol/HDL Ratio Hepatitis C Ab Screen Neg (Neg) Diagnostic Findings LEFT SHOULDER 2 VIEWS CLINICAL HISTORY: Postoperative examination. FINDINGS: 2 portable views of the left shoulder are obtained. No prior studies are available for comparison at the time of dictation. The skeletal structures are osteopenic. A left shoulder arthroplasty is in near anatomic alignment. No acute fracture is seen. Mild productive change is noted at the acromioclavicular joint. Expected postoperative changes overly the left shoulder including skin clips, a surgical drain, subcutaneous gas, and soft tissue swelling. The visualized left lung parenchyma is clear. IMPRESSION: Expected postoperative findings status post left shoulder arthroplasty. No acute fracture is identified. PG Care Time/CCT Total # of Minutes Spent Total Time Spent with Patient: Total time spent is greater than 50% in coordination of care (as documented) at patient's floor/unit and/or counseling patient:
--- NOTE | 2019-05-06 15:14 | Orthopedic Progress Note ---
Date of Service May 06, 2019 Assessment & Plan (1) Status post reverse total arthroplasty of left shoulder: POD #1 s/p Left Total Shoulder Arthroplasty, Distal Clavicle Excision, Biceps Tenodesis Dressing in place PT/OT Pain control. DVT prophylaxis--ASA 81 mg BID D/C planning--home tomorrow 05.07.19. Subjective Doing well today. Pain controlled in the left shoulder. Concerned about long car ride home and possible increase in pain. Denies CP, SOB, LH. Physical Exam Constitutional: WD/WN, vitals as above no acute distress Musculoskeletal: Shoulder: + surgical incision (left shoulder dressing C/D/I. Sling in place) and + surgical drain present (~250 cc out of the hemovac in 24 hours); no deformity, no skin erythema and no ecchymosis Neurologic: normal touch/pain/proprioception Psychiatric: A+Ox3, euthymic affect Speech: normal rate/rhythm/volume of speech Results & Data Vital Signs (Past 12 Hours) Vital Signs Temp Pulse Resp BP Pulse Ox 05/06/19 11:23 36.4 C L 86 16 128/60 94 05/06/19 07:10 36.8 C 80 16 145/85 H 93
--- NOTE | 2019-05-06 16:10 | Anesthesiology Progress Note ---
Date of Service May 06, 2019 Anesthesia Post Procedure Vital Signs Vital Signs: Temp Pulse Resp BP Pulse Ox 05/06/19 15:29 36.9 C 87 18 146/86 H 97 05/06/19 11:23 36.4 C L 86 16 128/60 94 05/06/19 07:10 36.8 C 80 16 145/85 H 93 05/06/19 02:15 36.8 C 85 16 148/84 H 94 05/05/19 23:34 36.6 C 89 16 134/80 93 05/05/19 20:04 36.5 C 108 H 17 138/85 93 05/05/19 18:09 37.0 C 109 H 17 127/82 94 05/05/19 16:48 36.7 C 109 H 17 142/85 H 95 Pain Intensity Left Shoulder: Pain Intensity: 8 Transfer of Care Handoff Completed per policy Notes Mental Status: alert / awake / arousable and participated in evaluation Patient Amnestic to Procedure: Yes Nausea / Vomiting: adequately controlled Pain: adequately controlled Airway Patency, RR, SpO2: stable & adequate BP & HR: stable & adequate Hydration State: stable & adequate Anesthetic Complications: no major complications apparent
[2019-05-06] MEDS: SENNA 8.6 MG TAB PO SCH (20:14)
[2019-05-06] MEDS: DOXAZosin MESYLATE TAB 2 MG TAB PO SCH (20:14)
[2019-05-06] MEDS: ZOLPIDEM TARTRATE 5 MG TAB PO PRN (22:38)
[2019-05-07] MEDS: OXYCODONE HCL IR 5 MG TAB (IMMEDIATE RELEASE) PO PRN ×2 (01:02→09:29)
[2019-05-07] MEDS: ACETAMINOPHEN 500 MG TAB PO SCH (05:49)
[2019-05-07 05:59] LABS: Basophils # (auto) 0.01 K/uL (0-0.2); Basophils % (auto) 0.1 %; Eosinophils # (auto) 0.11 K/uL (0-0.5); Eosinophils % (auto) 0.9 %; Hematocrit (blood only) 40.9 % (42-52); Immature Granulocytes # (auto) 0.03 K/uL (0.00-0.02); Immature Granulocytes % (auto) 0.3 %; Lymphocytes # (auto) 2.23 K/uL (1.2-3.4); Mean Corpuscular Hemoglobin 31.9 pg (25-34); Mean Corpuscular Hgb Conc 34.2 g/dL (32-36); Mean Corpuscular Volume 93.2 fL (80-100); Mean Platelet Volume 10.6 fL (7.4-10.4); Monocytes # (auto) 1.36 K/uL (0.11-0.59); Monocytes % (auto) 11.6 %; Neutrophils % (auto) 68.1 %; Platelet Count 141 K/uL (130-400); RDW Coefficient of Variation 13.5 % (11.5-14.5); RDW Standard Deviation 46.5 fL (36.4-46.3); Red Blood Count 4.39 M/uL (4.7-6.1); White Blood Count 11.74 K/uL (4.8-10.8)
[2019-05-07 06:33] LABS: BUN Creatinine Ratio 20.5 (10-20); Calcium 8.4 mg/dl (8.5-10.1); Creatinine Clr Calc Pharmacy 96.2 ml/min; Est GFR (African American) 101.8; Est GFR (Non-African American) 87.9; Potassium 4.1 mmol/L (3.5-5.1)
[2019-05-07] MEDS: MULTIVITAMIN TAB PO SCH (07:29)
[2019-05-07] MEDS: DOCUSATE SODIUM 100 MG CAP PO SCH (07:29)
[2019-05-07] MEDS: AMLODIPINE BESYLATE 5 MG TAB PO SCH (07:29)
[2019-05-07] MEDS: allopurinoL 300 MG TAB PO SCH (07:29)
[2019-05-07] MEDS: ASPIRIN 81 MG ECTAB PO SCH (07:30)
[2019-05-07] MEDS: LOSARTAN POTASSIUM 50 MG TAB PO SCH (07:30)
--- NOTE | 2019-05-07 08:39 | Orthopedic Progress Note ---
Date of Service May 07, 2019 Assessment & Plan (1) Status post reverse total arthroplasty of left shoulder: POD #2 s/p Left Total Shoulder Arthroplasty, Distal Clavicle Excision, Biceps Tenodesis Dressing change this AM. PT/OT Pain control. DVT prophylaxis--ASA 81 mg BID. He's been taking it here without any issues but he states he was instructed by his PCP 10 years ago not to take ASA. He is to call his PCP's office tomorrow to discuss. D/C planning--home today Subjective Doing well today. Pain controlled in the left shoulder. Ready to go home this AM. Denies CP, SOB, LH. Physical Exam Constitutional: WD/WN, vitals as above no acute distress Musculoskeletal: Shoulder: + surgical incision (left shoulder dressing C/D/I. Sling in place); no deformity, no skin erythema, no ecchymosis and no surgical drain present (Hemovac was removed today.) Neurologic: normal touch/pain/proprioception Psychiatric: A+Ox3, euthymic affect Speech: normal rate/rhythm/volume of speech Results & Data Vital Signs (Past 12 Hours) Vital Signs Temp Pulse Resp BP Pulse Ox 05/07/19 06:22 36.7 C 78 18 148/91 H 93 05/06/19 23:21 36.8 C 80 16 134/84 94
[2019-05-09] MEDS ORDERED: ERGOCALCIFEROL 50,000 UNITS CAP PO SCH (09:00)
--- NOTE | 2019-05-21 20:34 | Discharge Summary ---
HISTORY OF PRESENT ILLNESS: This is a 68-year-old male patient of Dr. Lopez'kip complaining of chronic left shoulder pain, longstanding, now progressively getting worse. The patient has been diagnosed with end-stage osteoarthritis. He has failed conservative treatment and wishes to proceed with a left total shoulder arthroplasty. PAST MEDICAL HISTORY: Hypertension, hypercholesterolemia, osteoarthritis, neck problems, acid reflux, hiatal hernia, and dental issues. POSTOPERATIVE COURSE: The patient underwent a left total shoulder arthroplasty, distal clavicle excision, and biceps tenodesis on 05/05/2019. He was followed closely with medical consultation, physical therapy, pain control, and DVT prophylaxis in the form of aspirin. The patient did well postoperatively and was discharged on postoperative day #2. PHYSICAL EXAMINATION: EXTREMITITES: Left shoulder incision was clean, dry and intact. Jolene were intact. Skin edges were approximated well. There was no redness or drainage. Fingers were mobile. sling was intact. Neurologically and neurovascularly he was intact in his left upper extremity. DIAGNOSES: Status post left total shoulder arthroplasty, distal clavicle excision, biceps tenodesis with a history of hypertension, hypercholesterolemia, osteoarthritis, neck problems, acid reflux, hiatal hernia, and dental issues. PLAN: The patient was discharged home with outpatient physical therapy. He will continue his preadmission medications with the addition of pain medications and he will continue aspirin twice daily for DVT prophylaxis for 1 month postop. The patient will follow up as scheduled as an outpatient. MILAN
== END 2019-05-07 11:38 | disposition home or self-care (01) | DRG 483 ==
LOC: ASU 07:02 → 3E 14:07

== ENCOUNTER 2020-03-27 09:17 | Inpatient (IN) ==
--- NOTE | 2020-02-21 15:17 | PAT Medication Instructions ---
Medication Instructions Date of Service February 21, 2020 Home Medications allopurinol 300 mg PO QAM amlodipine 5 mg PO QAM cholecalciferol (vitamin D3) [Vitamin D3] 250 mcg PO QAM doxazosin 2 mg PO BID loratadine [Claritin] 10 mg PO DAILY PRN losartan 100 mg PO QAM turmeric 400 mg PO QAM melatonin 1 - 3 mg PO HS PRN naproxen sodium [Aleve] 220 mg PO BID PRN ASK your surgeon for instructions naproxen sodium [Aleve] 220 mg PO BID PRN STOP taking 2 weeks before surgery (or as soon as possible if surgery is within 2 weeks) turmeric 400 mg PO QAM DO NOT take the morning of surgery cholecalciferol (vitamin D3) [Vitamin D3] 250 mcg PO QAM loratadine [Claritin] 10 mg PO DAILY PRN losartan 100 mg PO QAM Take morning of surgery With a small sip of water, OTHERWISE NOTHING TO EAT OR DRINK AFTER MIDNIGHT: allopurinol 300 mg PO QAM amlodipine 5 mg PO QAM Take evening before surgery doxazosin 2 mg PO BID loratadine [Claritin] 10 mg PO DAILY PRN (if needed) melatonin 1 - 3 mg PO HS PRN (if needed) Other Notes If you have any questions please call us at [phone] or [phone] or [phone] or [phone]
--- NOTE | 2020-02-26 12:59 | Anesthesiology Consultation ---
Date of Service February 26, 2020 Assessment & Plan (1) Encounter for pre-operative examination: COVID Status: As of 02/25 assessment, patient denies travel to endemic area, known exposure/sick contacts, or symptoms of COVID19. Patient instructed that they and their household members must follow strict social distancing guidelines, wear a mask in public and avoid travel for 14 days prior to surgery. Preoperative COVID19 testing to be completed prior to surgery per surgeon's ar rangements (pt reports to be done 03/22). Patient made aware to self-isolate as much as possible between COVID testing and surgery. Chart Review Chart Review: Acceptable Risk for Surgery and Patient seen in Pre Admission Testing Teaching & Discussion Instructed NPO after midnight before surgery, except medications with 15 cc of water. Medication instructions provided according to the PAT guidelines. History Surgery Operation Date: 03/27/20 09:10 Proposed Procedures p Right Total Shoulder Arthroplasty, Distal Clavical Excision - Aditya Lopez MD Height/Weight Height: 5 ft 11 in Weight: 103.4 kg Allergies Allergy/AdvReac Type Severity Reaction Status Date / Time No Known Drug Allergies Allergy Verified 02/15/20 11:56 Medications Home Medications Medication Instructions Recorded Confirmed Last Taken allopurinol 300 mg PO QAM 04/18/19 02/15/20 05/04/19 07:30 amlodipine 5 mg PO QAM 04/18/19 02/15/20 05/04/19 cholecalciferol (vitamin D3) 250 mcg PO QAM 04/18/19 02/15/20 05/02/19 [Vitamin D3] doxazosin 2 mg PO BID 04/18/19 02/15/20 05/04/19 20:00 1 mg loratadine [Claritin] 10 mg PO DAILY PRN 04/18/19 02/15/20 05/04/19 20:00 losartan 100 mg PO QAM 04/18/19 02/15/20 05/04/19 turmeric 400 mg PO QAM 04/18/19 02/15/20 04/25/19 melatonin 1 - 3 mg PO HS PRN 02/15/20 02/15/20 Unknown naproxen sodium [Aleve] 220 mg PO BID PRN 02/15/20 02/15/20 Unknown Past Medical History Medical History Deep vein thrombosis ~1994 in leg s/p surgery H/O: gout Hypertension Osteoarthritis Exercise / Class Metabolic Activity II 4-5 Yardwork/Stairs/Walk up hill Past Family History Family History Brother Family hx of colon cancer Other No family history of adverse response to anesthesia Past Surgical History Surgical History History of carpal tunnel release bilateral History of colonoscopy History of esophagogastroduodenoscopy (EGD) History of left shoulder replacement 05/05/2019 [facility] History of tonsillectomy History of total knee replacement bilateral S/P genital surgery Exploratory surgery on scrotum to remove masses S/P left inguinal hernia repair S/P right knee surgery cartilage repair Past Anesthesia History No Hx of Anesthesia Complications and No Family Hx of Anesthesia Complications History of PONV No Hx of PONV and No Hx of Motion Sickness Social History Smoking Status: Never smoker Do You Dip or Chew Tobacco: No Hx Alcohol Use: Yes Alcohol type: beer alcohol intake frequency: 3 or more drinks per day (six pack per day per , pt reports 3 beers after work daily) Hx Substance Use: No substance use type: does not use Review of Systems Pt denies any recent chest pain, shortness of breath, palpitations, cough, fever, URI, or uncontrolled acid reflux. +sinus congestion, improving, using luz marina-seltzer+ at home Physical Exam Vital Signs BP: 123/77 P: 93bpm SPO2: 97% RA T: 98.1 F R: 16 ENMT Mouth: + dental restorations (crowns); no chipped teeth and no loose teeth Thyromental Distance: > or= 3.5 Finger Breadths Mallampati Class: III Mouth / Teeth: 1. six crowns Neck + short neck; neck extension not limited Respiratory normal respiratory effort Auscultation: lungs clear to auscultation bilaterally Cardiovascular Rate/Rhythm: regular rate and regular rhythm Heart Sounds: no murmur Vessels: no carotid bruit Testing Laboratory Results 02/26/20 13:11 02/26/20 13:11 PT 10.9 Seconds (9.0-12.0) 02/26/20 13:11 INR 1.0 (0.9-1.1) 02/26/20 13:11 APTT 27.8 Seconds (21.0-31.0) 02/26/20 13:11 Hemoglobin A1c 5.4 % (4.5-5.6) 02/26/20 13:11 Urine Color Yellow 02/26/20 13:11 Urine Appearance Clear (Clear) 02/26/20 13:11 Urine pH 5.0 (4.5-7.5) 02/26/20 13:11 Ur Specific [place] 1.013 (1.000-1.030) 02/26/20 13:11 Urine Protein Negative (Negative) 02/26/20 13:11 Urine Glucose (UA) Negative (Negative) 02/26/20 13:11 Urine Ketones Negative (Negative) 02/26/20 13:11 Urine Nitrite Negative (Negative) 02/26/20 13:11 Ur Leukocyte Esterase Negative (Negative) 02/26/20 13:11 Blood Type A Positive 02/26/20 13:11 Antibody Screen NEGATIVE 02/26/20 13:11 Electrocardiogram Date: 02/26/20 Findings: + NSR @ (73bpm) No significant change from 04/2019 Chest X-Ray Date: 02/26/20 1. No acute process within the chest. 2. Possible 8 mm nodule within the right midlung zone. Follow-up PA and lateral views of the chest with oblique views and nipple markers recommended for further evaluation. 3. This report was called/faxed to the referring physician's office following di ctation. *also faxed to PCP office for f/u
[2020-02-26 14:02] LABS: Basophils # (auto) 0.01 K/uL (0-0.2); Basophils % (auto) 0.2 %; Eosinophils # (auto) 0.38 K/uL (0-0.5); Eosinophils % (auto) 6.4 %; Hematocrit (blood only) 47.6 % (42-52); Hemoglobin 16.5 g/dL (14.0-18.0); Immature Granulocytes # (auto) 0.02 K/uL (0.00-0.02); Immature Granulocytes % (auto) 0.3 %; Lymphocytes # (auto) 1.73 K/uL (1.2-3.4); Lymphocytes % (auto) 29.2 %; Mean Corpuscular Hemoglobin 31.9 pg (25-34); Mean Corpuscular Hgb Conc 34.7 g/dL (32-36); Mean Corpuscular Volume 92.1 fL (80-100); Mean Platelet Volume 10.8 fL (7.4-10.4); Monocytes # (auto) 0.55 K/uL (0.11-0.59); Monocytes % (auto) 9.3 %; Neutrophils # (auto) 3.23 K/uL (1.4-6.5); Neutrophils % (auto) 54.6 %; Platelet Count 201 K/uL (130-400); RDW Coefficient of Variation 13.8 % (11.5-14.5); RDW Standard Deviation 46.5 fL (36.4-46.3); Red Blood Count 5.17 M/uL (4.7-6.1); White Blood Count 5.92 K/uL (4.8-10.8)
[2020-02-26 14:17] LABS: Estimated Average Glucose 108 mg/dl; Hemoglobin A1C 5.4 % (4.5-5.6)
[2020-02-26 14:20] LABS: Appearance Urine Clear (Clear); Bilirubin Urine Negative (Negative); Blood Urine Negative (Negative); Color Urine Yellow; Glucose Urine UA Negative (Negative); Ketones Urine Negative (Negative); Leukocyte Esterase Urine Negative (Negative); Nitrite Urine Negative (Negative); Protein Urine Negative (Negative); Specific Gravity Urine 1.013 (1.000-1.030); Urobilinogen Urine Negative (Negative)
[2020-02-26 14:25] LABS: Partial Thromboplastin Time 27.8 Seconds (21.0-31.0); Prothrombin Time 10.9 Seconds (9.0-12.0)
[2020-02-26 14:36] LABS: Albumin Level 3.5 gm/dl (3.4-5.0); BUN Creatinine Ratio 14.1 (10-20); Calcium 8.7 mg/dl (8.5-10.1); Creatinine Clr Calc Pharmacy 80.5 ml/min; Est GFR (African American) 82.6; Est GFR (Non-African American) 71.3
--- NOTE | 2020-02-26 16:13 | Electrocardiogram Report ---
Test Reason : Blood Pressure : / mmHG Vent. Rate : 073 BPM Atrial Rate : 073 BPM P-R Int : 152 ms QRS Dur : 086 ms QT Int : 372 ms P-R-T Axes : 059 066 051 degrees QTc Int : 409 ms Normal sinus rhythm Normal ECG When compared with ECG of 25-APR-2019 13:48, No significant change was found Confirmed by Junior Zhu ([id number]) on 02/26/2020 4:13:45 PM Referred By: Aditya Lopez Confirmed By:Junior Zhu
--- NOTE | 2020-03-26 19:35 | History and Physical Report ---
DATE OF ADMISSION: 03/27/2020 CHIEF COMPLAINT: Chronic right shoulder pain. HISTORY OF PRESENT ILLNESS: This is a 69-year-old male patient of Dr. Lopez'kip complaining of chronic right shoulder pain, longstanding, now progressively getting worse. The patient has failed conservative treatment. He has been diagnosed with end-stage osteoarthritis in the glenohumeral joint as well as the AC joint. The patient wished to proceed with a right total shoulder arthroplasty and distal clavicle excision. PAST MEDICAL HISTORY: Hypertension, rheumatoid arthritis, osteoarthritis, and hiatal hernia. SOCIAL HISTORY: Nonsmoker, occasional drinker. FAMILY HISTORY: Noncontributory. REVIEW OF SYSTEMS: Chronic right shoulder pain. Otherwise, denies any shortness of breath, chest pain, nausea, vomiting or any other joint complaints. PAST SURGICAL HISTORY: Left shoulder surgery, bilateral knee surgery, tonsillectomy, hernia surgery and testicle cyst removal. ALLERGIES: No known drug allergies. MEDICATIONS: 1. Amlodipine 5 mg daily. 2. Ambien 10 mg half tablet daily. 3. Losartan 100 mg daily. 4. Allopurinol 300 mg 1/2 tablet every day as needed. 5. Doxazosin 2 mg 1/2 tablet twice daily. 6. Claritin 10 mg daily. 7. Turmeric 400 mg twice daily. 8. Aleve as needed. PHYSICAL EXAMINATION: GENERAL: Well-developed, well-nourished 69-year-old male in no acute distress. He is alert and oriented x3 and pleasant. HEENT: Normocephalic, atraumatic. Extraocular motions are intact. Pupils are equal and reactive to light. HEART: Regular rate and rhythm, no murmurs. LUNGS: Clear. ABDOMEN: Soft, nontender, bowel sounds present. EXTREMITIES: Right shoulder, positive impingement maneuvering. He has full range of motion with pain and crepitation. He has 4+/5 strength. Neurologically and neurovascularly, he is intact in his right upper extremity. DIAGNOSES: Right shoulder end-stage osteoarthritis with a history of hypertension, rheumatoid arthritis, hiatal hernia. PLAN: The patient was advised of his diagnosis. Indications, risks, benefits, postop course have all been reviewed. The patient wished to proceed with a right total shoulder arthroplasty and distal clavicle excision. Necessary consent forms, preoperative testing and clearances will be obtained.
[~2020-03-27 09:17] MED LIST changes: -CEFAZOLIN 2000MG 2,000 MG/15 ML SYR IV SCH; -DEXAMETHASONE SOD INJ 4 MG/ML VIAL ONE; +ceFAZolin 2000MG 2,000 MG/15 ML SYR IV SCH
[2020-03-27] MEDS ORDERED: ONDANSETRON INJ 2 MG/ML 2 ML VIAL IV PRN ×2 (11:59→18:22)
[2020-03-27] MEDS ORDERED: ATROPINE SULFATE 0.1 MG/ML 10ML SYR IV PRN (11:59)
[2020-03-27] MEDS ORDERED: ePHEDrine sulfate 50 MG/ML AMP IV PRN (11:59)
[2020-03-27] MEDS ORDERED: MIDAZOLAM HCL 1 MG/ML 2ML VIAL ONE ×2 (12:52→14:08)
[2020-03-27] MEDS ORDERED: fentaNYL citrate 100 MCG/2 ML VIAL ONE ×3 (12:53→17:30)
--- NOTE | 2020-03-27 12:54 | History & Physical Bridge Note ---
Date of Service March 27, 2020 History & Physical Bridge Note I have examined the patient, reviewed the History & Physical and in the interval since the performance of the History & Physical I have noted the following changes of clinical significance: no changes noted
[2020-03-27] MEDS ORDERED: BACITRACIN INJ 50,000 UNIT VIAL ONE (13:08)
[2020-03-27] MEDS ORDERED: EpINEphrine HCL INJ 1 MG/ML 1ML SYRINGE ONE (13:13)
[2020-03-27] MEDS ORDERED: PROPOFOL IV EMULSION 10 MG/ML 20 ML VIAL IV ONE (13:43)
[2020-03-27] MEDS ORDERED: LIDOCAINE HCL 2% 2 ML VIAL/AMP(20MG/ML) INFIL ONE (13:43)
[2020-03-27] MEDS ORDERED: ROCURONIUM BROMIDE 10 MG/ML 5 ML VIAL IV ONE (13:43)
[2020-03-27] MEDS ORDERED: ONDANSETRON INJ 2 MG/ML 2 ML VIAL ONE (14:17)
--- NOTE | 2020-03-27 17:23 | Post Operative Brief Note ---
Immediate Post Op Note v1 Date of Surgery March 27, 2020 Pre & Post Diagnosis Operation Date: 03/27/20 11:50 Pre-Op Diagnosis: Osteoarthritis, Right Shoulder, glenohumeral and AC joint Post-Op Diagnosis: Osteoarthritis, Right Shoulder, glenohumeral and AC joint, marked biceps tenosynovitis biceps tendinopathy I identified the patient and participated in the time-out.: Yes Procedure Operation Date: 03/27/20 11:50 Actual Procedures p Right Total Shoulder Arthroplasty, Distal Clavical Excision(Right), biceps tenodesis- Aditya Lopez MD Surgeon Aditya Lopez MD Neck Skewer HE Moe Estimated Blood Loss 200 Findings Consistent with Post-Op Diagnosis Specimens Distal clavicle, humeral head Drains Hemovac Drain Anesthesia Type General Regional Complications none None Disposition Accompanied Patient To Recovery: No Disposition: Recovery Room Overlapping Procedure I was immediately available: during the entire case.
--- NOTE | 2020-03-27 17:42 | Operative Report ---
Post Operative Report Pre & Post Diagnosis Operation Date: 03/27/20 11:50 Pre-Op Diagnosis: Osteoarthritis right shoulder, glenohumeral joint and AC joint Post-Op Diagnosis: Osteoarthritis right Shoulder, glenohumeral joint and AC joint, marked biceps tenosynovitis with biceps tendinopathy I identified the patient and participated in the time-out.: Yes Procedure Operation Date: 03/27/20 11:50 Actual Procedures Right Total Shoulder Arthroplasty, Distal Clavicle Excision, biceps tenodesis- Aditya Lopez MD Surgeon Aditya Lopez MD Senior Safety Management Consultant HE Moe Estimated Blood Loss 200 Findings Consistent with Post-Op Diagnosis Specimens Humeral head cut and distal clavicle Drains 2 Hemovac Anesthesia Type General Regional Complications none Disposition Accompanied Patient To Recovery: No Disposition: Recovery Room Indications 69-year-old male with chronic right shoulder pain end-stage glenohumeral osteoarthritis [id number] glenohumeral joint with concentric type wear. Patient has hypertrophic AC joint osteoarthritis. Patient similar condition on his opposite shoulder did well with a total shoulder replacement with distal clavicle excision. Description of Procedure The patient was taken to the operating room and anesthetized under a general and regional block anesthesia. A towel roll was placed under the medial border of the scapula of the right shoulder. The patient's head was placed on a foam headrest and protective eyewear was placed and the extremities were well padded. The arm was draped free in order to manipulate the shoulder as necessary. The shoulder exam demonstrated hypertrophic AC joint [id number] crepitation forward flexion to 150 degrees and external rotation to 30 degrees with abduction to 80 degrees. The shoulder was sterilely prepped and draped in the usual sterile fashion. An anterior deltopectoral approach was performed. A longitudinal incision was made in the interval. The skin was incised sharply and subcutaneous tissues dissected down to the fascia. The cephalic vein was identified and retracted laterally with the deltoid. Any crossing veins were tied off with silk ties and divided. The clavipectoral fascia was divided at the lateral margin of the conjoined tendon and divided up to the level of the coracoacromial ligament which was preserved. The upper 1 cm of the pectoralis was released for inferior exposure. The biceps tendon findings demonstrated marked hypertrophic synovitis surrounding the biceps tendon extending from the bicipital groove down to the pectoralis with scarred tenosynovitis and tendinopathy of the biceps. The rotator cuff tendon findings demonstrated intact rotator cuff tendon tissue including subscapularis supraspinatus and infraspinatus and teres minor. There was some thickened bursitis noted that was resected to fully visualize rotator cuff.. The circumflex vessels were identified and tied off with silk ties and divided laterally. The fibers and subscapularis were split longitudinally at the level of the circumflex vessels down to the capsule and then reflected off the inferior capsule using a Kitner elevator. The axillary nerve was identified with a tug test and protected with a blunt Clint retractor. The rotator interval was opened up and extended down to the glenoid. The biceps tendon was identified and tenodesed to the pectoralis tendon with gckcai-hj-pupfe #2 FiberWire sutures in the proximal biceps was resected. The subscapularis tendon was taken down with a trans-ten dinous incision leaving a cuff of tissue for repair on the lesser tuberosity. The incision was carried down to the tendon and the capsule and a #1 Vicryl suture was placed into the free end of the subscapularis tendon. The capsule was subperiosteally dissected off the inferior neck of the humerus exposing the humeral osteophytes which demonstrated moderately sized osteophytes from anterior to posterior. Humeral head was eburnated bone with no remaining articular cartilage. The osteophytes were excised with an artist chisel and a rongeur. The capsular release along the inferior neck of the humerus was completed. The humerus was then retracted posterior to the glenoid with a Fukuda retractor. The remainder of the biceps tendon and labrum were resected. The glenoid findings demonstrated grade 4 osteoarthritis with primarily concentric central wear but more posterior than anterior and some increased retroversion of the glenoid. I did an anterior inferior and posterior inferior release with electrocautery on bone and a Nowak elevator with the axillary nerve continuing to be protected with the blunt Hohmann retractor inferiorly. When the releases were completed and the humeral head was exposed with some extension and external rotation and in anatomic head cut was made using the oscillating saw. The Tornier simplicity total shoulder arthroplasty was used including the Cortiloc pegged glenoid component. Attention was first taken to preparation of the humerus. The surface reamer was used and then the sizing guide used for a 50 mm diameter head and the central drill pin was placed followed by the drill for the boss of the nucleus and then the trial nucleus was impacted leaving it a few millimeters proud and then the cut protector was placed on that. The humerus was then retracted posterior to the glenoid using a Bankart retractor anteriorly and blunt Clint and posterior Tornier glenoid retractor. A central drill hole was made into the glenoid. The drill hole was made to place a more anteversion on the present glenoid position and some decrease in the superior inclination. The reamer was then used for the medium 30 radius Cortiloc glenoid. The glenoid was reamed and the central drill widened and the guide for the 3 peripheral peg holes was placed in the peg holes were drilled and a trial component was placed with a tight fit. Anterior and inferior peripheral osteophytes were removed with a rongeur. The trial was removed and the glenoid was irrigated with pulsatile lavage antibiotic solution and the drill holes were dried and packed with epinephrine-soaked tampons for hemostasis. The Palacos G cement was vacuum mixed. The final component was cemented into position and held in position with pressure until the cement cured. A humeral head trial was placed. A trial reduction was performed and the shoulder was stable with a 50 x 19 humeral head trial.. The trial was removed and the humerus and canal were irrigated with antibiotic solution with bacitracin. 3 drill holes were made into the hard bone in the bicipital groove lateral to the lesser tuberosity and 3 #5 FiberWire transosseous sutures were placed for repair of the subscapularis. After further irrigation the #2 nucleus was impacted leaving it slightly proud and then the 50 x 19 humeral head was placed onto the nucleus and the impactor was used to impact the head into the nucleus and the nucleus set down flush with the cut.. The humerus was reduced to the glenoid and stability verified. The subscapularis was repaired with the #5 FiberWire sutures in a Terry-Jony suture technique and lateral row fixation with ekuyio-fz-bqwcy #2 FiberWire in the soft tissue. The rotator interval was closed and maximal external rotation. The pectoralis was then closed with [id number]-[id number] #2 FiberWire suture. The sutures were passed through the biceps tendon as well to reinforce the biceps tenodesis. After irrigation some sponges were placed in the wound and then we went ahead and address the distal clavicle resection. A 3 cm transverse incision was made across the distal clavicle. Subcutaneous flaps were elevated. The large spurs were identified on the acromion and distal clavicle. The periosteum was split transversely over the distal clavicle and over the top of the acromion. Subperiosteal dissection was performed around 1 cm distal clavicle and across the dorsal spurs on the acromion. 1 cm distal clavicle was resected with an oscillating saw. The AC joint had severe osteoarthritis. The dorsal spurs on the acromion were resected with a rongeur. After irrigation the deltoid trapezius fascia was repaired with wsvfvr-pe-[id number] #2 FiberWire sutures with a secure repair. The subcutaneous tissues were closed into 2-0 Vicryl sutures. Skin was closed with juliet over the AC joint surgical site. The anterior wound was irrigated 2 Hemovac drains were placed the deltopectoral interval was repaired with [id number] #1 Vicryl sutures and then the s ubcutaneous tissues were closed with interrupted 2-0 Vicryl and the skin was closed with juliet and a sterile dressing was applied. The patient tolerated the procedure well. HE Moe my physician research assistant, assisted in soft tissue retraction instrument management suture management and assisted in the subcutaneous and skin closure and will participate in the postoperative care the patient. I attest to the content of the Intraoperative Record and any orders documented therein. Any exceptions are noted below.
[2020-03-27] MEDS: fentaNYL citrate 100 MCG/2 ML VIAL IV PRN ×2 (17:46→17:51)
--- NOTE | 2020-03-27 18:03 | Anesthesiology Progress Note ---
Date of Service March 27, 2020 Anesthesia Post Procedure Vital Signs Vital Signs: Temp Pulse Pulse Resp BP Pulse Ox 03/27/20 17:50 108 H 14 131/97 93 03/27/20 17:40 113 H 17 139/89 94 03/27/20 17:34 36.0 C L 113 H 17 161/104 H 94 03/27/20 10:30 36.4 C L 78 18 151/97 H 97 03/27/20 09:45 36.5 C 70 18 147/96 H 96 Pain Intensity Right Shoulder: Pain Intensity: 4 Transfer of Care Handoff Completed per policy Notes Mental Status: alert / awake / arousable and participated in evaluation Patient Amnestic to Procedure: Yes Nausea / Vomiting: adequately controlled Pain: adequately controlled Airway Patency, RR, SpO2: stable & adequate BP & HR: stable & adequate Hydration State: stable & adequate Anesthetic Complications: no major complications apparent and Pt Satisfied with anesthetic care
[2020-03-27] MEDS ORDERED: MAGNESIUM HYDROXIDE SUSP 30 ML UDC PO PRN (18:22)
[2020-03-27] MEDS ORDERED: MELATONIN 3 MG TAB PO PRN (18:22)
[2020-03-27] MEDS ORDERED: SODIUM CHLORIDE 0.9% 1000ML 1,000 ML IV SCH (18:22)
[2020-03-27] MEDS ORDERED: NALOXONE HCL 0.4 MG/1 ML VIAL/CARP IV PRN (18:22)
[2020-03-27] MEDS ORDERED: LORATADINE 10 MG TAB PO PRN (18:22)
[2020-03-27] MEDS ORDERED: bisacodyL 10 MG SUPP PR PRN (18:22)
[2020-03-27] MEDS ORDERED: diphenhydrAMINE Capsule 25 MG CAP PO PRN (18:22)
--- NOTE | 2020-03-27 18:29 | XRay Report ---
XR shoulder RT min 2V routine CLINICAL HISTORY: Post shoulder surgery COMPARISON: None FINDINGS: Alignment of the right shoulder arthroplasty is anatomic. Skin juliet and drains are note d. There is no acute fracture. There are no unexpected radiopaque foreign bodies. IMPRESSION: Expected findings following right shoulder arthroplasty. ACT 112: Negative or not required by law. Electronically signed by: Reji Patel M.D. 03/27/2020 6:28 PM
[2020-03-27] MEDS: DOXAZosin MESYLATE TAB 2 MG TAB PO SCH (20:43)
[2020-03-27] MEDS: DOCUSATE SODIUM 100 MG CAP PO SCH (20:43)
[2020-03-27] MEDS: SENNA 8.6 MG TAB PO SCH (20:43)
[2020-03-27] MEDS: ACETAMINOPHEN 500 MG TAB PO SCH (22:24)
[2020-03-27] MEDS: ceFAZolin 2000MG 2,000 MG/15 ML SYR IV SCH (22:24)
[2020-03-28] MEDS: ceFAZolin 2000MG 2,000 MG/15 ML SYR IV SCH (05:40)
[2020-03-28] MEDS: ACETAMINOPHEN 500 MG TAB PO SCH ×3 (05:42→22:09)
[2020-03-28 06:17] LABS: Hematocrit (blood only) 44.1 % (42-52); Hemoglobin 15.3 g/dL (14.0-18.0); Immature Granulocytes # (auto) 0.04 K/uL (0.00-0.02); Immature Granulocytes % (auto) 0.3 %; Lymphocytes # (auto) 1.06 K/uL (1.2-3.4); Lymphocytes % (auto) 7.4 %; Mean Corpuscular Hemoglobin 32.2 pg (25-34); Mean Corpuscular Hgb Conc 34.7 g/dL (32-36); Mean Corpuscular Volume 92.8 fL (80-100); Mean Platelet Volume 10.5 fL (7.4-10.4); Monocytes # (auto) 1.21 K/uL (0.11-0.59); Monocytes % (auto) 8.4 %; Neutrophils # (auto) 12.03 K/uL (1.4-6.5); Neutrophils % (auto) 83.9 %; Platelet Count 163 K/uL (130-400); RDW Coefficient of Variation 13.7 % (11.5-14.5); RDW Standard Deviation 46.7 fL (36.4-46.3); Red Blood Count 4.75 M/uL (4.7-6.1); White Blood Count 14.34 K/uL (4.8-10.8)
[2020-03-28 06:59] LABS: BUN Creatinine Ratio 20.3 (10-20); Calcium 8.2 mg/dl (8.5-10.1); Creatinine Clr Calc Pharmacy 76.8 ml/min; Est GFR (Non-African American) 68.1
--- NOTE | 2020-03-28 08:10 | Orthopedic Progress Note ---
Date of Service March 28, 2020 Assessment & Plan (1) Arthritis of right shoulder region: POD #1, Right TSA, Biceps tenodesis PT/ OT Has a remote hx, approx 25 yrs ago of DVT, is not on any blood thinners per PCP, advised not to take ASA per PCP due to other medications. D/C plans for OPPT and home. Will monitor pain today. Admission and Anticipated Discharge Date Admission Date: March 27, 2020 Subjective POD #1, Feeling well, states pain is getting worse. Denies SOB, CP, N/V, Dizziness. Wishes OPPT on D/C. Physical Exam Physical Exam: Right shoulder dressings c/d/i, Fingers mobile. Sling in tact. A&Ox3 VSS Results & Data ([facility]) Vital Signs (Past 12 Hours) Vital Signs Temp Pulse Resp BP Pulse Ox 03/28/20 07:37 36.7 C 68 15 157/86 H 94 03/28/20 03:38 37.2 C 79 16 159/95 H 93 03/27/20 23:37 37.0 C 96 H 18 130/85 92 03/27/20 21:07 37.0 C 95 H 18 156/101 H 92 03/27/20 20:15 37.1 C 104 H 16 136/95 93
--- NOTE | 2020-03-28 08:44 | Hospitalist Consultation ---
Date of Consultation March 28, 2020 Assessment & Plan (1) Status post total replacement of right shoulder: - Pain management, bowel regimen and DVT ppx per the primary team - PT/OT consults, pt is planning on outpatient therapy at [facility] rehab center near the hospital (2) Hypertension: - Cont amlodipine 5 mg daily, cardura 2 mg PO BID, losartan 100 mg QAM - BP is 157/86 (3) Osteoarthritis: - Continue (4) Deep venous thrombosis: - Hx of 1994 (5) Obesity: - BMI of 31.1 - HH/DM diet DVT ppx: ambulatory CODE: Full code Dispo: From home, possible dc within 24 hours. Thank you for involving us in the care of Mr. Baker. Please do not hesitate to call with questions or concerns. At this time medicine service will sign off. Supervising Physician Co-Signing Physician Notes Patient seen and examined with Carol CUTLER. I agree with her exam findings, review of systems, assessment and plan. I personally reviewed the lab work and imaging as well. patient doing well after shoulder surgery, pain reasonably controlled continue home medical regimen for hypertension will check labs in the morning can likely sign off if he remains stable, discharge planning per orthopedics History of Present Illness Reason for Consultation: Medical managment Requesting Physician: Dr. Lopez Attending Physician: Aditya Lopez MD History of Present Illness This is a 69 yo M with PMhx of HTN, DVT in 1994, OA and gout who presents for R total shoulder repair, clavicle excision, biceps tenodesis by Dr. Lopez on 03/27/20. The patient is doing very well overall. He reports that his pain is well controlled, eating and drinking without difficulty, no nausea or vomiting, bowels have not yet moved today however did have a BM yesterday. He has been up and ambulating about the room without any difficulty. Patient plans to continue with PT/OT in [place] with rehab center close to the hospital. He lives at home with his . Anticipating home with discharge within the next 24 hours. Allergies Allergy/AdvReac Type Severity Reaction Status Date / Time No Known Drug Allergies Allergy Verified 03/27/20 09:58 Home Medications Medication Instructions Recorded Confirmed Type allopurinol 300 mg PO QAM 04/18/19 03/27/20 History amlodipine 5 mg PO QAM 04/18/19 03/27/20 History cholecalciferol (vitamin D3) 250 mcg PO QAM 04/18/19 03/27/20 History [Vitamin D3] doxazosin 2 mg PO BID 04/18/19 03/27/20 History loratadine [Claritin] 10 mg PO DAILY PRN 04/18/19 03/27/20 History losartan 100 mg PO QAM 04/18/19 03/27/20 History turmeric 400 mg PO QAM 04/18/19 03/27/20 History melatonin 1 - 3 mg PO HS PRN 02/15/20 03/27/20 History acetaminophen 1,000 mg PO Q8 14 Days #84 tab 03/29/20 Rx Patient History Medical History (Updated 03/28/20 @ 08:07 by Haim Smith) Deep vein thrombosis ~1994 in leg s/p surgery H/O: gout Hypertension Osteoarthritis Surgical History (Updated 03/28/20 @ 08:40 by Rima Will PA-C) History of carpal tunnel release bilateral History of colonoscopy History of esophagogastroduodenoscopy (EGD) History of left shoulder replacement 05/05/2019 [facility] History of tonsillectomy History of total knee replacement bilateral S/P genital surgery Exploratory surgery on scrotum to remove masses S/P left inguinal hernia repair S/P right knee surgery cartilage repair Family History Brother Family hx of colon cancer Other No family history of adverse response to anesthesia Social History Smoking Status: Never smoker Second Hand Exposure: Yes (as a child); Do You Dip or Chew Tobacco: No; Hx Alcohol Use: Yes Alcohol type: beer Hx Substance Use: No Preferred Language: Serbian Communication Ability: Effective Trains Dispatcher Supervisor Required: No Beliefs That Will Affect Care: None marital status: Current Living Situation: Spouse Feels Safe at Home: Yes Safety Concerns: Feels Safe At This Time Assistive Devices: Glasses and Walker Review of Systems Review of Systems: Constitutional: No fever, sweats or chills Eyes: No diplopia, no worsening or blurred vision ENT: normal hearing, no trouble swallowing Respiratory: No cough, sputum, dyspnea at rest or on exertion Cardiovascular: No chest pain, tightness or palpitations Abdomen: No pain, nausea, vomiting, diarrhea or constipation Musculoskeletal: Right shoulder pain, well controlled, no calf pain, swelling Neurologic: No weakness, numbness/tingling, or balance problems Psychiatric: No anxiety or depression Skin: No rash or itch Physical Exam Physical Exam: General: awake, alert, no apparent distress Head: Normocephalic, atraumatic ENT: PERRL, EOMI, no pharyngeal exudate, mucous membranes moist Chest: Clear to auscultation, on room air, no adventitious breath sounds Cardiac: Regular rate and rhythm, no murmur, no JVD, normal peripheral pulses, good capillary refill Abdominal: NABS x 4 quadrants, soft, nondistended, nontender to palpation, no rebound or guarding Extremities: + Right shoulder in sling, Hemovac drain in place, good sensation to light touch in fingertips, can move fingers and wrist without difficulty, otherwise normal inspection, no peripheral edema or erythema, calfs nontender to palpation Psych: Normal mood and affect Neuro: AAO x 3, strength intact bilaterally and rated 5/5, no motor deficits, speech is clear, no peripheral sensory deficits Results & Data Results & Data ([facility]) Vital Signs (Past 12 Hours) Vital Signs Temp Pulse Resp BP Pulse Ox 03/28/20 07:37 36.7 C 68 15 157/86 H 94 03/28/20 03:38 37.2 C 79 16 159/95 H 93 03/27/20 23:37 37.0 C 96 H 18 130/85 92 03/27/20 21:07 37.0 C 95 H 18 156/101 H 92 PG Care Time/CCT Total # of Minutes Spent Total Time Spent with Patient: Total time spent is greater than 50% in coordination of care (as documented) at patient's floor/unit and/or counseling patient: Coding Level of Care Code 89151 Inpt Consult Level 3 Diagnoses Status post total replacement of right shoulder Z96.611 Hypertension I10 Osteoarthritis M19.90 Deep venous thrombosis I82.409 Obesity E66.9
[2020-03-28] MEDS: DOCUSATE SODIUM 100 MG CAP PO SCH ×2 (09:17→19:15)
[2020-03-28] MEDS: allopurinoL 300 MG TAB PO SCH (09:18)
[2020-03-28] MEDS: DOXAZosin MESYLATE TAB 2 MG TAB PO SCH ×2 (09:18→19:15)
[2020-03-28] MEDS: LOSARTAN POTASSIUM 50 MG TAB PO SCH (09:18)
[2020-03-28] MEDS: MULTIVITAMIN TAB PO SCH (09:19)
[2020-03-28] MEDS: amLODIPine BESYLATE 5 MG TAB PO SCH (09:19)
[2020-03-28] MEDS: oxyCODONE HCL IR 5 MG TAB (IMMEDIATE RELEASE) PO PRN ×4 (09:21→22:09)
[2020-03-28] MEDS: CHOLECALCIFEROL 1,000 UNITS 25 MCG TAB PO SCH (09:26)
[2020-03-28] MEDS: HYDROmorphone INJ 0.5 MG/0.5 ML SYR IV PRN ×2 (15:10→19:18)
[2020-03-28] MEDS: SENNA 8.6 MG TAB PO SCH (19:16)
[2020-03-29] MEDS: ACETAMINOPHEN 500 MG TAB PO SCH (05:55)
[2020-03-29] MEDS: oxyCODONE HCL IR 5 MG TAB (IMMEDIATE RELEASE) PO PRN ×2 (05:56→10:01)
[2020-03-29] MEDS ORDERED: KETOROLAC TROMETHAMINE 15 MG/ML VIAL IV ONE (07:52)
--- NOTE | 2020-03-29 08:06 | Orthopedic Progress Note ---
Date of Service March 29, 2020 Assessment & Plan (1) Arthritis of right shoulder region: POD #2, Right TSA, Biceps tenodesis PT/ OT Has a remote hx, approx 25 yrs ago of DVT, is not on any blood thinners per PCP, advised not to take ASA per PCP due to other medications. D/C plans for OPPT and home. Somewhat painful for this morning. We will see how his pain control is but plan for discharge later this morning if pain is controlled. Admission and Anticipated Discharge Date Admission Date: March 27, 2020 Subjective Postop day 2 Patient currently lying in bed awake and alert. States he is having some pain this morning. He just received some oral pain medication a little bit ago. No other complaints this morning. Denies shortness of breath, chest pain, lightheadedness. Patient is hoping to go home today. Physical Exam Physical Exam: Dressings are clean, dry, and intact. Neurovascular is intact. He has good range of motion with the hand and wrist, fingers. Sensation is intact. Nontender at the elbow. Capillary refill is less than 2 seconds. Results & Data ([facility]) Vital Signs (Past 12 Hours) Vital Signs Temp Pulse Resp BP Pulse Ox 03/29/20 07:14 37.3 C 78 16 138/75 93 03/28/20 23:12 37.3 C 89 16 140/90 92
[2020-03-29] MEDS: DOCUSATE SODIUM 100 MG CAP PO SCH (08:56)
[2020-03-29] MEDS: LOSARTAN POTASSIUM 50 MG TAB PO SCH (08:56)
[2020-03-29] MEDS: DOXAZosin MESYLATE TAB 2 MG TAB PO SCH (08:56)
[2020-03-29] MEDS: allopurinoL 300 MG TAB PO SCH (08:56)
[2020-03-29] MEDS: amLODIPine BESYLATE 5 MG TAB PO SCH (08:56)
[2020-03-29] MEDS: CHOLECALCIFEROL 1,000 UNITS 25 MCG TAB PO SCH (08:56)
[2020-03-29] MEDS: MULTIVITAMIN TAB PO SCH (08:56)
--- NOTE | 2020-04-09 18:50 | Discharge Summary (DS) ---
HISTORY OF PRESENT ILLNESS: This is a 69-year-old male patient of Dr. Lopez'kip complaining of chronic right shoulder pain, longstanding, progressively getting worse. The patient failed conservative treatment and was diagnosed with end-stage osteoarthritis of the glenohumeral joint. The patient wished to proceed with a right total shoulder arthroplasty as well as a distal clavicle excision. PAST MEDICAL HISTORY: Hypertension, rheumatoid arthritis, osteoarthritis, and hiatal hernia. POSTOPERATIVE COURSE: The patient underwent a right total shoulder arthroplasty, open distal clavicle excision, and biceps tenodesis on 03/27/2020. He was followed closely with medical consultation, physical therapy and pain control. The patient did have some pain issues on postoperative day 1, but as the day progressed, he did get it under control by postoperative day #2, Otherwise, an uneventful postoperative course. PHYSICAL EXAMINATION: On discharge, right shoulder dressings were clean, dry and intact. There was no redness or drainage. Incision was intact. Jolene are intact. Skin edges were approximated well. Elbow, wrist, hand and fingers were mobile. Sling was intact. Neurologically and neurovascularly intact right upper extremity. DIAGNOSES: Status post right total shoulder arthroplasty, biceps tenodesis and distal clavicle excision with a history of hypertension, rheumatoid arthritis, osteoarthritis, and hiatal hernia. PLAN: The patient was discharged home with outpatient physical therapy. He will continue his preadmission medications with the addition of pain medications. He will follow up as an outpatient as scheduled.
== END 2020-03-29 13:43 | disposition home or self-care (01) | DRG 483 ==
LOC: ASU 09:17 → 3E 17:29